=== PATIENT | male | born 1965 | race Two or more races ===

== ENCOUNTER → 2018-02-16 | Outpatient (CLI) | payer MEDICAID ==
--- NOTE | 2018-02-16 18:35 | MR ---
EXAMINATION TYPE: MR lumbar spine wo con DATE OF EXAM: 02/16/2018 COMPARISON: NONE HISTORY: Low back pain TECHNIQUE: T1 and T2 axial and sagittal images of the lumbar spine are submitted. FINDINGS: There is no abnormal signal seen within the visualized spinal cord or paraspinal soft tissu es. At L1-2 there is no disc herniation or canal stenosis. Vertebral body hemangioma of L1. No foraminal encroachment At L2-3 there is degenerative disc disease with facet arthropathy and circumferential disc bulging. M ild bilateral foraminal encroachment. No Canal stenosis. At L3-4 there is degenerative disc disease with diffuse disc bulging, ligamentum flavum hypertrophy, facet arthropathy. Moderate bilateral foraminal encroachment and canal stenosis At L4-5 there is degenerative disc disease with broad-based central disc bulging and facet arthropath y with ligamentum flavum hypertrophy. Moderate central stenosis and mild bilateral foraminal encroach ment At L5-S1 there is degenerative disc disease with central disc bulging. Neural foramina remain patent. No Canal stenosis. Advanced facet arthropathy IMPRESSION: 1. Multilevel degenerative disc disease with circumferential disc bulging most marked at L3-4 and L4- 5 resulting in central canal stenosis and bilateral foraminal encroachment.
== END ==
LOC: RADMRIMAIN 17:03
PROVIDERS: ATTEND Nurse Practitioner Family
DX: M51.16 Intervertebral disc disorders with radiculopathy, lumbar region (principal)
CPT/HCPCS: 72148

== ENCOUNTER → 2018-04-19 | Outpatient (CLI) | payer MEDICAID ==
[2018-04-15 13:49] VITALS: BMI 29.9
[2018-04-19 12:39] VITALS: BP 113/82; PULSE 94; RESP 16; TEMP 98.3
--- NOTE | 2018-04-19 14:04 | P.CON ---
Consult Note - . Consult date: 04/19/18 Assessment/Plan:: This is a 52-year-old patient referred by Dr. Carrillo for chronic low back pain . She has complaints of low back pain for 3 years. States that pain is about a 4-5 out of 10 in severity and states that its worse with walking and improved with rest. States that the pain starts in his low back and goes radiates and the side of his legs his hamstring area and at times into his groin. Occasionally pain will radiate down to his toes and the bottom of his feet. He is a patient Dr. Cloud who referred him to us for more conservative management. I discussed with him lumbar epidural steroid injections after reviewing his MRI with him and his diagnosis. I discussed the risks and benefits with the patient in detail. Patient is looking to return to his normal activity level which include cycling and it has been limited because of progressive pain over the past 3 years. Patient is not taking any medications at the moment, he has tried Mobic which she states made him groggy and is not interested in medical management at all. Patient has tried physical therapy which he stated has improved his low back pain slightly. Patient also denies new-onset weakness, bowel/bladder incontinence, or any other signs or symptoms of cauda equina syndrome. There are no signs of acute intoxication, and no indications of medication diversion or overuse. Patient HAS NOT had surgery. Patient HAS NOT had injections previously. Patient HAS had physical therapy recently, and has been beneficial. In addition to above, 13-point review of systems is also negative for chest pain , shortness of breath, changes in vision, changes in hearing, new onset weakness , abdominal pain, diarrhea, extreme fatigue, malaise, fever, skin changes, homicidal or suicidal ideation, or bowel or bladder incontinence. Vital Signs: Reviewed in EMR Gen: WDWN, AAOx3, NAD HEENT: NCAT, EOMI, hearing grossly normal Pulm: resp unlabored Abd: soft, NT, ND Neck: supple, trachea midline ROM in flexion lumbar spine: The normal limits ROM in extension lumbar spine: Within normal limits Lumbar paravertebral tenderness: Negative Facet loading: Positive on the right greater than left SI joint tenderness: Negative Avery's test: Negative Straight leg raise: Positive at 45 bilateral Lower extremity: ROM dorsiflexion/plantarflexion strength, hip flexion/extension , and knee flexion/extension all intact 5/5 Gait: Normal Reflexes: 2/2 bilaterally Neuro: CN II-XII grossly intact, muscle strength lower extremities PRESERVED Imaging: Patient had MRI of lumbar spine in February 2018, I reviewed the images with the patient as well as the report. I discussed her diagnosis in detail she has mild to moderate spinal canal stenosis in her lumbar spine as well as facet hypertrophy and the entire lumbar spine bilaterally. Assessment: 1. Lumbar spinal stenosis 2. Lumbar radiculopathy 3. Lumbar spondylosis without myelopathy 4, degenerative disc disease Plan: 1. Explanation: Opioid and psychological risk scores were reviewed. Diagnoses , prognoses, and multiple treatment options including but not limited to physical therapy, interventional therapies, adjuvant medical therapies, narcotic medication therapies, and surgery were discussed with the patient and all questions were answered to the patient's satisfaction. 2. Opioid agreement: Patient signed narcotic agreement, and was orally counseled to not overuse, abuse, divert, or cell medications, and to take them as prescribed by only 1 healthcare provider. The patient was also counseled to take medications as prescribed by only 1 healthcare provider and to store opioid medications in the safe and preferably locked location. Patient was also counseled against driving or operating heavy equipment while using narcotic medications and also not use alcohol or any illicit or recreational drugs. The patient verbalized understanding that lack of compliance with any of the above and likely result in failure to renew narcotic prescriptions, possible discharge from the clinic, and possible legal ramifications thereafter if indicated. 3. Counseling: Specifically, the patient was instructed regarding the importance of weight control, and exercise in the context of both chronic pain and overall health. 4. Procedures: Discussed lumbar epidural steroid injections at the L3-L4 interspace. Patient will take time to decide whether he wants to proceed in this manner. 5. Consultations: None 6. Investigations: Maps reviewed 7. Medications: None 8. Disposition: Return to clinic as needed, schedule procedure as needed PQRS measures: 1-Patient's medications are documented in the chart. 2-Tobacco use is negative 3-Patient has not had a pneumococcal vaccine. 4-Advanced care planning discussed, patient unable to give. 5-Opioid contract not signed with the patient. No opiates prescribed 6-Pain positive, follow-up visit or procedure scheduled 7-Patient's blood pressure measured and documented, and patient will follow up with the primary care due to hypertension. 8-Patient's weight was measured, and body mass index ABOVE the normal limits, and counseling was done. Patient instructed to follow up with PCP. 9-Patient WAS NOT identified as an unhealthy alcohol user.
== END | disposition home or self-care (01) ==
LOC: PNWHC3 12:11
PROVIDERS: ATTEND Anesthesiology
DX: M48.061 Spinal stenosis, lumbar region without neurogenic claudication (principal); M51.16 Intervertebral disc disorders with radiculopathy, lumbar region; M47.26 Other spondylosis with radiculopathy, lumbar region
CPT/HCPCS: 99211

== ENCOUNTER 2018-06-01 06:25 | Day surgery (SDC) | payer MEDICAID ==
[2018-05-28 12:39] VITALS: BMI 30.8
[~2018-06-01 06:25] MED LIST: LACTATED RINGERS 1,000 ML IV SCH
[2018-06-01 06:52] VITALS: RESP 16; TEMP 98.2
[2018-06-01] MEDS ORDERED: LIDOCAINE 1% 20 ML VIAL (10MG/ML) FOR IV START INTRADERMA ONE (06:52)
--- NOTE | 2018-06-01 07:20 | P.PCN ---
Date of Procedure: 06/01/18 Procedure(s) Performed: PREOPERATIVE DIAGNOSIS: 1- Lumbar Degenerative Disc Diseases 2-Lumbar spondylosis with Facet arthropathy without myelopathy. 3-lumbar radiculopathy. POSTOPERATIVE DIAGNOSIS: 1-Lumber Degenerative Disc Diseases 2-Lumbar spondylosis with Facet arthropathy without myelopathy. 3-lumbar radiculopathy PROCEDURE 1. Lumbar epidural steroid injection under fluoroscopic guidance at the L4-5 level. 2. Lumbar epidurogram. ANESTHESIA: Local with 1% lidocaine 3 ml and , moderate sedation with intravenous Versed 2 mg ,and fentanyle 50 Mcg EBL: Minimal PROCEDURE INDICATION: The patient with low back pain and radiculitis symptoms unresponsive to conservative treatment. Fluoroscopy was used to optimize visualization of the needle placement and to maximize safety. PROCEDURE DESCRIPTION / TECHNIQUE: The patient was seen and identified in the preoperative area. Risks, benefits , complications including but not limited to infections ,bleeding ,allergic reaction to the medications ,nerve damage and not complete pain releife , and alternatives were discussed with the patient. The patient agreed to proceed with the procedure and signed the consent. IV was started, and vital signs were stable. Patient was taken to the OR and time out was completed. The patient was placed in the prone position on procedure table and a pillow was placed under the abdomen to reduce lumbar lordosis. The lumbosacral area was prepped and draped in the usual sterile fashion.ere closely monitored during the procedure. Conscious sedation was used during the procedure to decrease patients anxiety. Vital signs was monitered during the entire procedure. Using anterior-posterior fluoroscopy, the L4-5 interlaminar space was identified and the skin over this site was marked and then infiltrated with 1% lidocaine subcutaneously. Subsequently, a 20-gauge Tuohy epidural needle was inserted and advanced toward the epidural space using the ``Loss of resistance technique and guided by AP and lateral fluoroscopy. The correct needle position in the epidural space was verified with the injection of 2 mL of the water soluble contrast dye Isovue 200 contrast and observing an excellent epidurogram with the epidural spread of the dye, after negative aspiration for blood and CSF and in the absence of paresthesias. Again after negative aspiration, a 6 ml mixture containing 80 mg of Depo-medrol and 2 ml of preservative free Normal Saline, and 2 ml of preservative free lidocaine 1% solution was injected and a washout of epidurogram was seen. Needle was withdrawn intact, skin was cleansed, and bandages were applied. COMPLICATIONS: None DISPOSITION / PLANS: The patient was placed in a supine position and transferred to the recovery area in a stable condition for observation. There was no evidence of lower extremity motor or sensory deficit after the procedure. Patient was discharged from the recovery room after meeting discharge criteria. Home discharge instructions were given to the patient by the staff. The patient was reexamined prior to discharge. The patient will schedule a follow up in the clinic in 2-4 weeks.
[2018-06-01] MEDS ORDERED: IV FLUID CONTINUATION 1,000 ML IV ONE (07:27)
[2018-06-01 07:45] VITALS: BP 119/72; PULSE 77
--- NOTE | 2018-06-01 08:36 | FL ---
EXAMINATION TYPE: FL guided pain mgmt statistic DATE OF EXAM: 06/01/2018 CLINICAL HISTORY: Low back pain. TECHNIQUE: Fluoroscopy. COMPARISON: None. FINDINGS: Fluoroscopic guidance was provided during pain relief procedure performed by Dr. Carroll . A total of 1 second of fluoroscopic time was utilized during the procedure and single spot image i s acquired. Single image acquired shows needle localization at L4-L5 level with contrast injection. IMPRESSION: As Above.
== END 2018-06-01 08:06 | disposition home or self-care (01) ==
LOC: ORPAIN 06:25
PROVIDERS: ATTEND Specialist
DX: M51.16 Intervertebral disc disorders with radiculopathy, lumbar region (principal); M47.26 Other spondylosis with radiculopathy, lumbar region; Z88.0 Allergy status to penicillin
CPT/HCPCS: 62323; J2250; J1030; J3010; Q9966

== ENCOUNTER 2018-06-15 06:34 | Day surgery (SDC) | payer MEDICAID ==
[2018-06-10 10:44] VITALS: BMI 30.8
[2018-06-15] MEDS ORDERED: LIDOCAINE 1% 20 ML VIAL (10MG/ML) FOR IV START INTRADERMA ONE (07:09)
[2018-06-15 07:18] VITALS: RESP 16; TEMP 97.9
--- NOTE | 2018-06-15 07:49 | P.PCN ---
Date of Procedure: 06/15/18 Procedure(s) Performed: PREOPERATIVE DIAGNOSIS: 1- Lumbar Degenerative Disc Diseases 2-Lumbar spondylosis with Facet arthropathy without myelopathy. 3-lumbar radiculopathy. POSTOPERATIVE DIAGNOSIS: 1-Lumber Degenerative Disc Diseases 2-Lumbar spondylosis with Facet arthropathy without myelopathy. 3-lumbar radiculopathy. PROCEDURE 1. Lumbar epidural steroid injection under fluoroscopic guidance at the L4-5 level. 2. Lumbar epidurogram. ANESTHESIA: Local with 1% lidocaine 3 ml and , moderate sedation with intravenous Versed 2 mg ,and fentanyle 50 Mcg EBL: Minimal PROCEDURE INDICATION: The patient with low back pain and radiculitis symptoms unresponsive to conservative treatment. Fluoroscopy was used to optimize visualization of the needle placement and to maximize safety. PROCEDURE DESCRIPTION / TECHNIQUE: The patient was seen and identified in the preoperative area. Risks, benefits , complications including but not limited to infections ,bleeding ,allergic reaction to the medications ,nerve damage and not complete pain releife , and alternatives were discussed with the patient. The patient agreed to proceed with the procedure and signed the consent. IV was started, and vital signs were stable. Patient was taken to the OR and time out was completed. The patient was placed in the prone position on procedure table and a pillow was placed under the abdomen to reduce lumbar lordosis. The lumbosacral area was prepped and draped in the usual sterile fashion.ere closely monitored during the procedure. Conscious sedation was used during the procedure to decrease patients anxiety. Vital signs was monitered during the entire procedure. Using anterior-posterior fluoroscopy, the L4-5 interlaminar space was identified and the skin over this site was marked and then infiltrated with 1% lidocaine subcutaneously. Subsequently, a 20-gauge Tuohy epidural needle was inserted and advanced toward the epidural space using the ``Loss of resistance technique and guided by AP and lateral fluoroscopy. The correct needle position in the epidural space was verified with the injection of 2 mL of the water soluble contrast dye Isovue 200 contrast and observing an excellent epidurogram with the epidural spread of the dye, after negative aspiration for blood and CSF and in the absence of paresthesias. Again after negative aspiration, a 6 ml mixture containing 80 mg of Depo-medrol and 2 ml of preservative free Normal Saline, and 2 ml of preservative free lidocaine 1% solution was injected and a washout of epidurogram was seen. Needle was withdrawn intact, skin was cleansed, and bandages were applied. COMPLICATIONS: None DISPOSITION / PLANS: The patient was placed in a supine position and transferred to the recovery area in a stable condition for observation. There was no evidence of lower extremity motor or sensory deficit after the procedure. Patient was discharged from the recovery room after meeting discharge criteria. Home discharge instructions were given to the patient by the staff. The patient was reexamined prior to discharge. The patient will schedule a follow up in the clinic in 2-4 weeks.
[2018-06-15] MEDS ORDERED: IV FLUID CONTINUATION 1,000 ML IV ONE (07:55)
[2018-06-15 07:59] VITALS: PULSE 73
[2018-06-15 08:11] VITALS: BP 115/83
--- NOTE | 2018-06-15 08:15 | FL ---
EXAMINATION TYPE: FL guided pain mgmt statistic DATE OF EXAM: 06/15/2018 HISTORY: Flouroscopy time 2 seconds of fluoroscopy provided. IMPRESSION: 1. Fluoroscopy time.
== END 2018-06-15 08:34 | disposition home or self-care (01) ==
LOC: ORPAIN 06:34
PROVIDERS: ATTEND Specialist
DX: M51.16 Intervertebral disc disorders with radiculopathy, lumbar region (principal); M47.26 Other spondylosis with radiculopathy, lumbar region
CPT/HCPCS: 62323; J2250; J1030; J3010; Q9966

== ENCOUNTER → 2018-07-13 | Outpatient (CLI) | payer MEDICAID ==
[2018-07-13 12:52] VITALS: BP 115/80; PULSE 102; RESP 18
--- NOTE | 2018-07-13 13:03 | P.PN ---
Progress Note - Text Progress Note Date: 07/13/18 This is a follow-up visit for this 53 years old male with a chronic history of severe low back pain, diagnosed with lumbar radiculopathy ,lumbar degenerative disc disease, and lumbar spondylosis and lumbar facet arthropathy, we have done Lumbar Epidural Steroid Injections 2 , he reported that his pain improved significantly, and his pain level 0-1/10, his activity of daily livings improved significantly, he denies any fever or night sweats but he denies any motor or sensory deficit, patient very satisfied with the result of the treatment and he will follow up with the pain clinic when necessary
== END | disposition home or self-care (01) ==
LOC: PNWHC3 12:29
PROVIDERS: ATTEND Specialist
DX: G89.29 Other chronic pain (principal); M54.5 Low back pain; M51.16 Intervertebral disc disorders with radiculopathy, lumbar region; M47.26 Other spondylosis with radiculopathy, lumbar region; M46.86 Other specified inflammatory spondylopathies, lumbar region
CPT/HCPCS: 99211

== ENCOUNTER → 2018-12-23 | Outpatient (CLI) | payer MEDICAID ==
--- NOTE | 2018-12-23 12:29 | ECHOS ---
STRESS ECHOCARDIOGRAM DATE OF SERVICE: 12/23/2018 INDICATIONS: Chest pain. MEDICATIONS: BASELINE HEART RATE: 72 BASELINE BLOOD PRESSURE: 104/64 MAXIMUM HEART RATE: 150 MAXIMUM BLOOD PRESSURE: 200/74 85% MPHR: 100% MPHR: METS: 10.3 MAXIMUM STAGE REACHED: III TOTAL EXERCISE TIME: 9 minutes CLINICAL INFORMATION: Baseline EKG revealed normal sinus rhythm without significant ST-T changes. Patient walked for 9 minutes on a standard Rafael protocol. Achieved a maximal heart rate of 150 beats per minute, developed fatigue and shortness of breath but did not have any angina or arrhythmia. EKG did not reveal any ST-segment changes to indicate ischemia. There was some baseline artifact. This is a negative stress test with fair exercise capacity. Peak heart rate was 150 beats per minute. Heart rate was more than 85% of predicted maximal. By EKG criteria, this is a negative stress test without evidence of ischemia. There was no angina or arrhythmia. Baseline echo images revealed normal wall motion, wall thickening of all segments. At peak exercise, there was good augmentation of left ventricular wall motion and wall thickening of all segments suggesting that there is no evidence of stress-induced ischemia on this study. MMODL / IJN: [id number] /
== END ==
LOC: RADNMMAIN 09:59
PROVIDERS: ATTEND Family Medicine
DX: I20.9 Angina pectoris, unspecified (principal); E78.5 Hyperlipidemia, unspecified
CPT/HCPCS: 93351

== ENCOUNTER → 2020-07-27 | Outpatient (CLI) | payer MEDICAID ==
--- NOTE | 2020-07-28 04:56 | MR ---
EXAMINATION TYPE: MR lumbar spine wo con DATE OF EXAM: 07/27/2020 COMPARISON: 02/16/2018 HISTORY: Bulging disc, low back pain Multiplanar multiecho imaging of the lumbar spine was performed without contrast. Vertebra have normal alignment. There is posterior disc herniation at L4-5 centrally and towards the left side. There is hypertrophic facet arthropathy also at L4-5. There is very severe spinal stenosis at L4-5. Disc herniation increased compared to old exam. There is no compression fracture. The posterior elements are intact. There is no lumbar paraspinal ma ss. Sacroiliac joints are intact. There is some mild lateral recess stenosis at L3-4 due to facet art hropathy. IMPRESSION: There is very severe spinal stenosis at L4-5 that shows progression compared to old exam. There is po sterior central and left side L4-5 lumbar disc herniation increased compared to old exam. Mild latera l recess stenosis at L3-4.
== END | disposition home or self-care (01) ==
LOC: RADMRIMAIN 17:57
PROVIDERS: ATTEND Orthopaedic Surgery Orthopaedic Surgery of the Spine
DX: M48.061 Spinal stenosis, lumbar region without neurogenic claudication (principal); M51.16 Intervertebral disc disorders with radiculopathy, lumbar region
CPT/HCPCS: 72148

== ENCOUNTER → 2021-08-05 | Outpatient (CLI) | payer MEDICAID ==
--- NOTE | 2021-08-05 17:44 | ECHOF ---
Referral Reason:R00.0 tachycardia MEASUREMENTS -------- HEIGHT: 177.8 cm WEIGHT: 93.9 kg BP: RVIDd: 3.7 cm (< 3.3) IVSd: 1.3 cm (0.6 - 1.1) LVIDd: 3.8 cm (3.9 - 5.3) LVPWd: 1.2 cm (0.6 - 1.1) IVSs: 1.6 cm LVIDs: 2.1 cm LVPWs: 1.6 cm LAESV Index (A-L): 31.61 ml/m Ao Diam: 3.8 cm (2.0 - 3.7) AV Cusp: 2.6 cm (1.5 - 2.6) LA Diam: 3.0 cm (2.7 - 3.8) MV EXCURSION: 14.054 mm (> 18.000) MV EF SLOPE: 80 mm/s (70 - 150) EPSS: 0.9 cm MV E Blayne: 0.63 m/s MV DecT: 167 ms MV A Blayne: 0.67 m/s MV E/A Ratio: 0.94 RAP: 5.00 mmHg RVSP: 28.72 mmHg FINDINGS -------- Sinus rhythm. This was a technically adequate study. The left ventricular size is normal. There is mild concentric left ventricular hypertrophy. Overa ll left ventricular systolic function is normal with, an EF between 55 - 60 %. The diastolic fillin g pattern is normal for the age of the patient 10.26. The right ventricle is normal in size. LA is midly dilated 29-33ml/m2. The right atrial size is normal. The aortic valve is trileaflet and appears structurally normal. There is no evidence of aortic regu rgitation. There is no evidence of aortic stenosis. There is trace mitral regurgitation. Mild tricuspid regurgitation present. There is no evidence of pulmonary hypertension. The right v entricular systolic pressure, as measured by Doppler, is 28.72mmHg. Trace/mild (physiologic) pulmonic regurgitation. The aortic root size is normal. Normal inferior vena cava with normal inspiratory collapse consistent with estimated right atrial pre ssure of 5 mmHg. There is no pericardial effusion. CONCLUSIONS -------- 1. The left ventricular size is normal. 2. There is mild concentric left ventricular hypertrophy. 3. Overall left ventricular systolic function is normal with, an EF between 55 - 60 %. 4. The diastolic filling pattern is normal for the age of the patient 10.26 5. LA is midly dilated 29-33ml/m2. 6. There is trace mitral regurgitation. 7. Mild tricuspid regurgitation present. 8. Trace/mild (physiologic) pulmonic regurgitation. PRIVACY SPECIALIST: Davina Onofre RDCS
== END | disposition home or self-care (01) ==
LOC: RADECHMAIN 13:55
PROVIDERS: ATTEND Family Medicine
DX: I51.7 Cardiomegaly (principal); I35.8 Other nonrheumatic aortic valve disorders
CPT/HCPCS: 93306

== ENCOUNTER → 2023-09-24 | Outpatient (CLI) | payer MEDICAID ==
--- NOTE | 2023-09-24 15:24 | US ---
EXAMINATION TYPE: US abdomen complete DATE OF EXAM: 09/24/2023 COMPARISON: NONE CLINICAL INDICATION: Male, 58 years old with history of R10.9 UNSPEC ABD PAIN; RUQ pain TECHNIQUE: Multiple sonographic images of the abdomen are obtained. FINDINGS: EXAM MEASUREMENTS: Liver Length: 13.9 cm Gallbladder Wall: 0.2 cm CBD: 0.3 cm Spleen: 10.3 cm Right Kidney: 10.6 x 5.2 x 4.7 cm Left Kidney: 10.8 x 5.3 x 4.2 cm Difficult and limited study due to patient body habitus Pancreas: limited by overlying midline bowel gas Liver: attenuating, heterogeneous Gallbladder: wnl Evidence for sonographic Trevizo's sign: no CBD: visualized portions wnl, limited by overlying bowel gas Spleen: wnl Right Kidney: wnl Left Kidney: wnl Upper IVC: wnl Abd Aorta: ectatic proximal portion at 2.6 cm, visualized mid and distal portions appear wnl IMPRESSION: 1. At least moderate hepatic steatosis. Correlate with LFTs, lipid profile, and patient risk factors. Appropriate clinical management advised. 2. No gallstones or biliary ductal dilatation.
== END | disposition home or self-care (01) ==
LOC: RADUSWWP 07:03
PROVIDERS: ATTEND Family Medicine
DX: K76.0 Fatty (change of) liver, not elsewhere classified (principal); R73.9 Hyperglycemia, unspecified
CPT/HCPCS: 76700

== ENCOUNTER → 2024-04-12 | Outpatient (CLI) | payer MEDICAID ==
--- NOTE | 2024-05-10 12:46 | US ---
EXAMINATION TYPE: US abdomen limited DATE OF EXAM: 05/03/2024 COMPARISON: NONE CLINICAL INDICATION: Male, 58 years old with history of Ventral hernia; Lump x 1 month TECHNIQUE: A ordnance technician imaging of the area of concern. FINDINGS: Unable to identify hernia, bulge seen when patient sits up no evidence for organizing flui d collection or mass. IMPRESSION: No evidence for a ventral hernia. No organizing fluid collection or mass. Bulging could r epresent diastases of the rectus abdominis. Consider CT imaging for confirmation.
== END | disposition home or self-care (01) ==
LOC: RADUSWWP 13:30
PROVIDERS: ATTEND Family Medicine
DX: K43.9 Ventral hernia without obstruction or gangrene (principal)
CPT/HCPCS: 76705

== ENCOUNTER 2025-02-14 06:15 | Day surgery (SDC) | payer MEDICAID ==
[2025-02-13 10:13] VITALS: BMI 32.4
[2025-02-14 06:45] VITALS: TEMP 97.1
[2025-02-14] MEDS: LACTATED RINGERS 1,000 ML BAG IV STA (06:52)
[2025-02-14] MEDS: IV FLUID CONTINUATION 1,000 ML IV ONE (06:53)
[2025-02-14] MEDS ORDERED: PROPOFOL 10 MG/ML 20 ML VIAL IV ONE (07:15)
[2025-02-14] MEDS ORDERED: LIDOCAINE 2% (PF) 20 MG/ML 5 ML VIAL ONE (07:15)
--- NOTE | 2025-02-14 07:24 | P.PCN ---
Date of Procedure: 02/14/25 Procedure(s) Performed: BRIEF HISTORY: Patient is a 59-year-old, pleasant, white male scheduled for an upper endoscopy as a part of evaluation of longstanding history of GERD of several years duration. Recently has been having worsening symptoms. Started on Protonix 40 mg twice daily and Pepcid at bedtime and still remains symptomatic. He is not scheduled for an upper endoscopy to evaluate further and rule out complicated reflux disease.. PROCEDURE PERFORMED: Esophagogastroduodenoscopy with biopsy. PREOPERATIVE DIAGNOSIS: Longstanding history of GERD. IV sedation per anesthesia. PROCEDURE: After informed consent was obtained, the patient was brought into the endoscopy unit. IV sedation was administered by Anesthesia under continuous monitoring. Initially the Olympus GIF-140 video endoscope was inserted into the mouth. Esophagus intubated without any difficulty. It was gradually advanced into the stomach and duodenum and carefully examined. The bulb and the second part of the duodenum appeared normal. The scope at this time was withdrawn to the stomach, adequately insufflated with air, and upon careful examination, mucosa of the antrum, had linear areas of erythema consistent with gastritis and biopsies were done from this area. Mucosa of the body, cardia and the fundus appeared normal. Multiple gastric polyps noted in the gastric body which were biopsied. These polyps measured between 3 to 4 mm in size. The scope was then withdrawn into the esophagus. Small sliding-type hiatal hernia noted. The GE junction was located at 41 cm from the incisors. The esophagus appeared normal. There were no erosions or ulcerations seen, biopsies were done from the distal esophagus and the patient tolerated the procedure well. IMPRESSION: 1. Small hiatal hernia but no evidence of esophagitis or Robles's esophagus. 2. Multiple small gastric polyps 3. Mild antral gastritis. RECOMMENDATIONS: The findings of this examination were discussed with the patient as well as his family. He was advised to follow-up with the biopsy results. Continue with Protonix 40 mg twice daily half hour before breakfast and dinnertime and follow antireflux measures and Pepcid at bedtime. Follow-up in the office in 2 to 3 weeks..
[2025-02-14 07:47] VITALS: BP 119/75; PULSE 69; RESP 17
== END 2025-02-14 08:16 | disposition home or self-care (01) ==
LOC: ORWHC2ENDO 06:15
PROVIDERS: ATTEND Internal Medicine Gastroenterology
DX: K29.50 Unspecified chronic gastritis without bleeding (principal); K31.7 Polyp of stomach and duodenum; K21.9 Gastro-esophageal reflux disease without esophagitis; K44.9 Diaphragmatic hernia without obstruction or gangrene; K31.A11 Gastric intestinal metaplasia without dysplasia, involving the antrum; M54.10 Radiculopathy, site unspecified; Z90.89 Acquired absence of other organs; Z89.521 Acquired absence of right knee; Z89.522 Acquired absence of left knee; Z89.231 Acquired absence of right shoulder; Z89.232 Acquired absence of left shoulder; Z88.0 Allergy status to penicillin; Z79.899 Other long term (current) drug therapy
CPT/HCPCS: 88305; 43239; J2704; J2003